=== PATIENT | male | born 1970 | race Caucasian/White ===

== ENCOUNTER 2017-09-30 21:43 | Emergency (ER) | payer OTHER ==
[~2017-09-30] VITALS: Ht 175.3 cm; Wt 68.0 kg
[2017-09-30 21:50] VITALS: BP 150/86
== END 2017-10-01 00:27 | disposition home or self-care (01) ==
LOC: ER 21:46
DX: S52.692A Other fracture of lower end of left ulna, initial encounter for closed fracture (principal); Y04.8XXA Assault by other bodily force, initial encounter; Y93.89 Activity, other specified; Y92.89 Other specified places as the place of occurrence of the external cause; Y99.8 Other external cause status
CPT/HCPCS: 29105; 73060; 73090; 99284; A4606; Z7610

== ENCOUNTER 2018-04-22 01:59 | Emergency (ER) | payer OTHER ==
[~2018-04-22] VITALS: Ht 172.7 cm; Wt 68.0 kg
[2018-04-22 01:59] VITALS: BP 120/77
[2018-04-22] MEDS ORDERED: SULFAMETH/TRIMETH 800/160 MG 1 UDTAB TABLET PO ONE ×2 (03:26→03:30)
[2018-04-22] MEDS ORDERED: CEPHALEXIN MONOHYDRATE 500 MG CAPSULE PO ONE ×2 (03:26→03:30)
== END 2018-04-22 03:32 | disposition home or self-care (01) ==
LOC: ER 02:03
DX: L08.9 Local infection of the skin and subcutaneous tissue, unspecified (principal)
CPT/HCPCS: 99283; A4606; A6403; Z7610

== ENCOUNTER 2018-05-27 14:10 | Emergency (ER) | payer OTHER ==
[~2018-05-27] VITALS: Ht 172.7 cm; Wt 63.5 kg
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
[2018-05-27] MEDS ORDERED: TDAP [DIPH/PERTUSSIS/TET] 0.5 ML VIAL IM ONE ×4 (14:21→15:30)
[2018-05-27] MEDS ORDERED: LIDOCAINE 1% INJ 50 ML MDV IJ ONE ×2 (14:21→14:30)
--- NOTE | 2018-05-27 14:34 | NUR ---
PATIENT REFUSED TDAP INJECTION IM, INFORMED MD AND MADE AWARE.
[2018-05-27] MEDS ORDERED: CEPHALEXIN MONOHYDRATE 500 MG CAPSULE PO ONE ×2 (15:24→15:30)
[2018-05-27] MEDS ORDERED: IBUPROFEN 600 MG TABLET PO ONE ×2 (15:24→15:30)
--- NOTE | 2018-05-27 15:40 | NUR ---
FINGER SPLINT APPLIED TO LEFT PINKY.
[2018-05-27 15:45] VITALS: BP 138/84
--- NOTE | 2018-05-27 15:46 | NUR ---
Patient discharged to home in stable condition. Written and verbal after care instructions given. Patient verbalizes understanding of instruction.
== END 2018-05-27 15:46 | disposition home or self-care (01) ==
LOC: ER 14:12
DX: S63.287A Dislocation of proximal interphalangeal joint of left little finger, initial encounter (principal); F17.200 Nicotine dependence, unspecified, uncomplicated; V98.8XXA Other specified transport accidents, initial encounter; Y93.89 Activity, other specified; Y92.89 Other specified places as the place of occurrence of the external cause; Y99.8 Other external cause status
CPT/HCPCS: 26770; 73140 ×2; 90471; 90715; 99284; 99406; A4606; A6402 ×2; J3490; Z7610

== ENCOUNTER 2018-08-24 11:57 | Emergency (ER) | payer OTHER ==
[~2018-08-24] VITALS: Ht 172.7 cm; Wt 63.5 kg
--- NOTE | 2018-08-24 12:10 | NUR ---
Denny yoon in ED - 08/24/18 at 1234 by RADHA RENU PRITCHARD AT BEDSIDE FOR I&D
[2018-08-24] MEDS ORDERED: IBUPROFEN 400 MG TABLET ONE (12:12)
[2018-08-24] MEDS ORDERED: LIDOCAINE 1%-EPI 1:100,000 20 ML VIAL ONE (12:12)
[2018-08-24] MEDS ORDERED: CEPHALEXIN MONOHYDRATE 500 MG CAPSULE PO ONE ×2 (12:12→12:30)
[2018-08-24] MEDS ORDERED: SULFAMETH/TRIMETH 800/160 MG 1 UDTAB TABLET PO ONE ×2 (12:13→12:30)
--- NOTE | 2018-08-24 12:19 | NUR ---
left forearm abscess x 2 days. PAIN LEVEL 8/10. PT IS AOX4, AMBULATORY, VSS, RESPIRATIONS EVEN AND UNLABORED. SKIN WARM TO TOUCH, DRY. DENIES SOB, DIZZINESS, WEAKNESS, N/V. READY FOR EVAL. WILL CONT TO MONITOR.
[2018-08-24] MEDS ORDERED: LIDOCAINE 1%-EPI 1:100,000 20 ML VIAL TP ONE (12:30)
[2018-08-24] MEDS ORDERED: IBUPROFEN 400 MG TABLET PO ONE (12:30)
--- NOTE | 2018-08-24 12:34 | NUR ---
MACHO, TEMPERATURE CONTROL INSPECTOR AT BEDSIDE FOR I&D
--- NOTE | 2018-08-24 13:06 | NUR ---
JOHN EMT AT BEDSIDE TO WRAP ABCESS. Patient discharged to home in stable condition. Written and verbal after care instructions given. Patient verbalizes understanding of instruction.
[2018-08-24 13:07] VITALS: BP 138/76
== END 2018-08-24 13:05 | disposition home or self-care (01) ==
LOC: ER 12:00
DX: L02.414 Cutaneous abscess of left upper limb (principal); L03.114 Cellulitis of left upper limb; F17.200 Nicotine dependence, unspecified, uncomplicated
CPT/HCPCS: 10060; 99284; A4606; A6402; A6407; J3490; Z7610

== ENCOUNTER 2020-05-02 17:19 | Emergency (ER) | payer OTHER ==
[~2020-05-02] VITALS: Ht 175.3 cm; Wt 66.0 kg
[2020-05-02] MEDS ORDERED: ACETAMINOPHEN ES 500 MG TABLET ONE (18:11)
[2020-05-02] MEDS ORDERED: ONDANSETRON HCL/PF 4 MG/2 ML VIAL ONE (18:11)
[2020-05-02] MEDS ORDERED: PANTOPRAZOLE 40 MG VIAL ONE (18:11)
[2020-05-02] MEDS ORDERED: KETOROLAC TROMETHAMINE 15 MG/ML VIAL ONE (18:11)
[2020-05-02] MEDS: IV NS 0.9% 1,000 ML BAG IV ONE (18:24)
[2020-05-02] MEDS: ONDANSETRON HCL/PF 4 MG/2 ML VIAL IVP ONE (18:27)
[2020-05-02] MEDS: KETOROLAC TROMETHAMINE INJ 30 MG/ML VIAL IV ONE (18:27)
[2020-05-02] MEDS: PANTOPRAZOLE 40 MG VIAL IV ONE (18:29)
[2020-05-02] MEDS: ACETAMINOPHEN ES 500 MG TABLET PO ONE (18:31)
--- NOTE | 2020-05-02 18:33 | NUR ---
c/o nausea and fever x 3 days. PT AAOX4, VSS. RR EVEN & UNLABORED. PT ALSO C/O ABD PAIN. DENIES CP, SOB, DIZZINESS AT THIS TIME. PT SEEN & EVAL'D BY DR. MONTALVO. MEDICATED ORDERED, PT SHANE WELL. WILL CONT TO MONITOR.
[2020-05-02 18:34] LABS: BASOPHILS % (AUTO) 0.3 % (0.0-2.0); HEMATOCRIT 50 % (39-51); HEMOGLOBIN 16.5 g/dL (13.5-17.5); LYMPHOCYTES # (AUTO) 0.2 /CMM (0.8-4.8); LYMPHOCYTES % (AUTO) 3.4 % (20.0-44.0); MEAN CORPUSCULAR HGB CONC 33 g/dl (31.0-36.0); MEAN CORPUSCULAR VOLUME 95 fL (80-96); MONOCYTES # (AUTO) 0.1 /CMM (0.1-1.30); NEUTROPHILS # (AUTO) 4.1 /CMM (1.8-8.9); NEUTROPHILS % (AUTO) 93.3 % (43.0-81.0); PLATELET COUNT (AUTO) 92 /CMM (150-450); RED BLOOD CELL COUNT(AUTO) 5.21 MIL/uL (4.5-6.0); WHITE BLOOD COUNT (AUTO) 4.4 K/uL (4.3-11.0)
[2020-05-02 18:50] LABS: CALCIUM, SERUM 8.5 mg/dL (8.5-10.1); CREATININE 1.3 mg/dL (0.6-1.3); POTASSIUM 4.3 mmol/L (3.5-5.1)
[2020-05-02 19:02] LABS: ALBUMIN 3.5 g/dL (3.4-5.0); BILIRUBIN,DIRECT 1.3 mg/dL (0.0-0.2); BILIRUBIN,TOTAL 1.7 mg/dL (0.2-1.0); TOTAL PROTEIN, SERUM 6.8 g/dL (6.4-8.2)
[2020-05-02 20:17] LABS: BAND % (MANUAL) 21 % (0.0-5.0); LYMPHOCYTES % (MANUAL) 8 % (16-48); METAMYELOCYTES % 4 % (0-0); MONOCYTES % (MANUAL) 1 % (0-11.0); NEUTROPHILS % (MANUAL) 66 (42-76)
--- NOTE | 2020-05-02 20:37 | NUR ---
IV removed. Catheter intact and site benign. Pressure and 4x4 applied to site. No bleeding noted.
--- NOTE | 2020-05-02 20:37 | NUR ---
Patient discharged to home in stable condition. Written and verbal after care instructions given. Patient verbalizes understanding of instruction. Pt ambulated with steady gait. vss.
[2020-05-02 20:38] VITALS: BP 127/71
== END 2020-05-02 20:39 | disposition home or self-care (01) ==
LOC: ER 17:21
DX: B17.9 Acute viral hepatitis, unspecified (principal); R11.0 Nausea; R10.13 Epigastric pain; F12.90 Cannabis use, unspecified, uncomplicated
CPT/HCPCS: 36415; 71045; 74176; 76705; 80048; 80074; 80076; 83690; 85025; 96361; 96374; 96375; 99285; C9113; J1885; J2405; J7030 ×2

== ENCOUNTER 2021-02-22 12:54 | Emergency (ER) | payer OTHER ==
[~2021-02-22] VITALS: Ht 175.3 cm; Wt 68.0 kg
[2021-02-22 12:57] VITALS: BP 144/79
--- NOTE | 2021-02-22 13:01 | NUR ---
AT BEDSIDE FOR EVAL.
[2021-02-22] MEDS ORDERED: CEPH500C2 PO (13:09)
[2021-02-22] MEDS ORDERED: SULF1TAB48 PO (13:09)
[2021-02-22] MEDS ORDERED: CEPHALEXIN MONOHYDRATE 500 MG CAPSULE PO ONE ×2 (13:19→13:30)
[2021-02-22] MEDS ORDERED: SULFAMETH/TRIMETH 800/160 MG 1 UDTAB TABLET ONE (13:19)
--- NOTE | 2021-02-22 13:21 | NUR ---
ZE ZUNIGA AT BEDSIDE FOR WOUND CLEANING AND DRESSING.
[2021-02-22] MEDS ORDERED: SULFAMETH/TRIMETH 800/160 MG 1 UDTAB TABLET PO ONE (13:30)
--- NOTE | 2021-02-22 13:45 | NUR ---
Patient given written and verbal discharge instructions. Patient verbalizes understanding of instructions. Patient is ambulatory with steady gait. Refuses offer of alf placement. Patient given list of available shelters in surrounding area.
== END 2021-02-22 13:47 | disposition home or self-care (01) ==
LOC: ER 13:00
DX: S80.861A Insect bite (nonvenomous), right lower leg, initial encounter (principal); L03.115 Cellulitis of right lower limb; F17.200 Nicotine dependence, unspecified, uncomplicated; W57.XXXA Bitten or stung by nonvenomous insect and other nonvenomous arthropods, initial encounter; Y93.01 Activity, walking, marching and hiking; Y92.89 Other specified places as the place of occurrence of the external cause; Y99.8 Other external cause status